=== PATIENT | female | born 2000 | race Caucasian/White ===

== ENCOUNTER 2020-01-12 17:33 | Emergency (ER) | payer OTHER, SELFPAY ==
[2020-01-12 18:01] VITALS: BP 129/82; PULSE 96; RESP 18; TEMP 37.5; O2SAT 99
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
[2020-01-12] MEDS: IBUPROFEN 600 MG TABLET PO (20:39)
[2020-01-12 21:25] VITALS: RESP 16
== END 2020-01-12 21:25 | disposition home or self-care (01) ==
PROVIDERS: Emergency Provider Emergency Medicine; PCP Family Medicine
DX: S09.90XA Unspecified injury of head, initial encounter (principal); V49.40XA Driver injured in collision with unspecified motor vehicles in traffic accident, initial encounter
CPT/HCPCS: 99282; A9270